=== PATIENT | female | born 1965 | race African-American/Black ===

== ENCOUNTER 2017-01-18 20:28 | Emergency (ER) | payer MEDICAID ==
[~2017-01-18] VITALS: Ht 157.5 cm; Wt 103.0 kg
[~2017-01-18 20:28] MED LIST: ASPI-986 PO; BECL8.7A6 IH; DOCU-138 PO; FURO-152 PO; HYDR-519 PO; MENT10LO8 MM; METO25TA6 PO; SIMV10TA6 PO; TRAM50TA3 PO
[2017-01-18] MEDS ORDERED: MORPHINE SULFATE 10 MG/ML CPJ IM ONE (22:30)
[2017-01-19] MEDS ORDERED: HYDROCODONE/ACETAMINOPHEN 10/325MG TABLET PO ONE
[2017-01-19 00:17] VITALS: BP 133/76
== END 2017-01-19 00:28 | disposition home or self-care (01) ==
LOC: ER 20:28
DX: S16.1XXA Strain of muscle, fascia and tendon at neck level, initial encounter (principal); S39.012A Strain of muscle, fascia and tendon of lower back, initial encounter; S29.012A Strain of muscle and tendon of back wall of thorax, initial encounter; S83.92XA Sprain of unspecified site of left knee, initial encounter; M25.511 Pain in right shoulder; S83.91XA Sprain of unspecified site of right knee, initial encounter; W18.2XXA Fall in (into) shower or empty bathtub, initial encounter; Y93.E1 Activity, personal bathing and showering; Y92.091 Bathroom in other non-institutional residence as the place of occurrence of the external cause; I10 Essential (primary) hypertension; E78.00 Pure hypercholesterolemia, unspecified; F17.210 Nicotine dependence, cigarettes, uncomplicated; Z79.1 Long term (current) use of non-steroidal anti-inflammatories (NSAID); Z79.82 Long term (current) use of aspirin; Z79.899 Other long term (current) drug therapy
CPT/HCPCS: 71010; 72050; 72070; 72100; 73560; 96372; 99284; J2270; Z7610

== ENCOUNTER 2017-04-01 20:33 | Emergency (ER) | payer MEDICAID ==
[~2017-04-01] VITALS: Ht 157.5 cm; Wt 116.0 kg
[2017-04-02 05:31] LABS: CLARITY URINE CLEAR (CLEAR); COLOR URINE YELLOW (YELLOW); GLUCOSE URINE NEGATIVE (NEGATIVE); KETONES URINE NEGATIVE (NEGATIVE); LEUKOCYTE ESTERASE URINE NEGATIVE (NEGATIVE); NITRITE URINE NEGATIVE (NEGATIVE); OCCULT BLOOD URINE NEGATIVE (NEGATIVE); PH URINE 5.5 (4.5-8.0); PROTEIN URINE NEGATIVE (NEGATIVE); SPECIFIC GRAVITY URINE 1.022 (1.005-1.030)
[2017-04-02] MEDS ORDERED: KETOROLAC 30MG/ML VIAL IV STA (07:17)
[2017-04-02] MEDS ORDERED: ONDANSETRON HCL 4MG/2ML VIAL IV STA (07:17)
[2017-04-02 07:44] LABS: INR 1.1; PROTHROMBIN TIME 11.2 sec (9.4-11.6)
[2017-04-02 07:50] LABS: CARBON DIOXIDE 27 mEq/L (21-32); CHLORIDE 109 mEq/L (98-107)
[2017-04-02 08:01] LABS: BASOPHILS % 0.8 % (0.0-2.0); EOSINOPHILS % 1.9 % (0.0-5.0); HEMATOCRIT. 42.4 % (36.0-48.0); HEMOGLOBIN. 14.2 g/dL (12.0-16.0); MEAN CORPUSCULAR VOLUME 80.5 fL (81.0-99.0); MEAN PLATELET VOLUME 8.7 fl (7.4-10.4); MONOCYTES % 5.8 % (2.0-8.0); NEUTROPHILS % 51.5 % (40.0-76.0); PLATELET 193 x1000/uL (130-400); RED BLOOD CELL COUNT 5.27 mill/uL (4.2-5.4); RED CELL DISTRIBUTION WIDTH 14.9 % (11.6-14.6)
[2017-04-02 09:33] VITALS: BP 120/60
== END 2017-04-02 10:04 | disposition home or self-care (01) ==
LOC: ER 20:33
DX: R10.32 Left lower quadrant pain (principal); R51 Headache; M54.5 Low back pain; M25.511 Pain in right shoulder; I10 Essential (primary) hypertension; E78.00 Pure hypercholesterolemia, unspecified; Z79.82 Long term (current) use of aspirin; W19.XXXA Unspecified fall, initial encounter; Y93.89 Activity, other specified; Y92.002 Bathroom of unspecified non-institutional (private) residence as the place of occurrence of the external cause; Y99.8 Other external cause status
CPT/HCPCS: 36415; 74022; 80053; 81003; 81025; 83690; 85025; 85610; 96374; 96375; 99285; J1885; J2405; Z7610

== ENCOUNTER 2017-06-19 23:58 | Emergency (ER) | payer MEDICAID ==
[~2017-06-19] VITALS: Ht 157.5 cm; Wt 114.0 kg
[2017-06-20] MEDS ORDERED: MORPHINE SULFATE 4 MG/ML CPJ (NOT FOR IM USE) IV STA (01:01)
[2017-06-20] MEDS ORDERED: ONDANSETRON HCL 4MG/2ML VIAL IV STA (01:01)
[2017-06-20] MEDS ORDERED: MORPHINE SULFATE 10 MG/ML CPJ IV STA (01:08)
[2017-06-20] MEDS ORDERED: MORPHINE SULFATE 10 MG/ML CPJ IV SCH (01:15)
[2017-06-20 01:35] LABS: BASOPHILS % 0.6 % (0.0-2.0); EOSINOPHILS % 1.6 % (0.0-5.0); HEMATOCRIT. 42.4 % (36.0-48.0); HEMOGLOBIN. 13.8 g/dL (12.0-16.0); LYMPHOCYTES % 32.2 % (20.0-50.0); MEAN CORPUSCULAR HEMOGLOBIN 26.8 pg (28.0-32.0); MEAN CORPUSCULAR VOLUME 82.3 fL (81.0-99.0); MEAN PLATELET VOLUME 8.3 fl (7.4-10.4); MONOCYTES % 8.8 % (2.0-8.0); NEUTROPHILS % 56.8 % (40.0-76.0); PLATELET 206 x1000/uL (130-400); RED BLOOD CELL COUNT 5.15 mill/uL (4.2-5.4); RED CELL DISTRIBUTION WIDTH 14.8 % (11.6-14.6)
[2017-06-20 01:50] LABS: CARBON DIOXIDE 27 mEq/L (21-32); CHLORIDE 107 mEq/L (98-107); TROPONIN I < 0.02 ng/mL (0.00-0.04)
[2017-06-20] MEDS ORDERED: IOHEXOL-350 100 ML BOTTLE ONE (04:23)
[2017-06-20 06:04] VITALS: BP 140/76
== END 2017-06-20 06:33 | disposition home or self-care (01) ==
LOC: ER 23:58
DX: R07.89 Other chest pain (principal); R06.02 Shortness of breath; M79.661 Pain in right lower leg; I10 Essential (primary) hypertension; E78.00 Pure hypercholesterolemia, unspecified; F17.200 Nicotine dependence, unspecified, uncomplicated; Z79.82 Long term (current) use of aspirin
CPT/HCPCS: 36415; 71010; 71275; 80053; 84484; 85025; 85379; 93005; 93971; 96374; 96375; 99285; J2270; J2405; J7030; Q9967; Z7610